=== PATIENT | female | born 1995 | race African-American/Black ===

== ENCOUNTER 2023-01-04 14:17 | Emergency (ER) | payer OTHER ==
[~2023-01-04] VITALS: Ht 175.3 cm; Wt 104.3 kg
[2023-01-04 14:25] VITALS: BP_SYST 120; PULSE 98; RESP 18; TEMP 98.3; O2SAT 100
[2023-01-04] MEDS ORDERED: methocarbamoL 500 MG TABLET PO ONE (15:30)
[2023-01-04] MEDS ORDERED: KETOROLAC TROMETHAMINE 15 MG VIAL IM ONE (15:30)
[2023-01-04] MEDS ORDERED: METH-634 PO (17:32)
[2023-01-04] MEDS ORDERED: IBUP-1969 PO (17:32)
[2023-01-04 17:47] VITALS: BP_SYST 120; PULSE 98; RESP 18; TEMP 98.3; O2SAT 100
== END 2023-01-04 17:47 | disposition home or self-care (01) ==
LOC: SED 14:17
DX: S06.0X0A Concussion without loss of consciousness, initial encounter (principal); S13.4XXA Sprain of ligaments of cervical spine, initial encounter; Z88.1 Allergy status to other antibiotic agents; Z88.2 Allergy status to sulfonamides; Z79.899 Other long term (current) drug therapy; W01.0XXA Fall on same level from slipping, tripping and stumbling without subsequent striking against object, initial encounter; Y93.89 Activity, other specified; Y92.89 Other specified places as the place of occurrence of the external cause; Y99.8 Other external cause status
CPT/HCPCS: 99285; 70450; 72110; 72125; 76376; 81025; 96372; J1885